=== PATIENT | female | born 1970 | race Caucasian/White ===

== ENCOUNTER 2020-02-27 08:40 | Day surgery (SDC) | payer MEDICAID, OTHER ==
[~2020-02-27] VITALS: Ht 157.5 cm; Wt 99.1 kg
[~2020-02-27 08:40] MED LIST: SODIUM CHLORIDE 0.9% 1,000 ML ONE
[2020-02-27] MEDS ORDERED: SODIUM CHLORIDE 0.9% 1,000 ML IV ONE (09:00)
[2020-02-27] MEDS ORDERED: OMEP20 PO (09:28)
[2020-02-27] MEDS ORDERED: INSLAN SQ (09:28)
[2020-02-27] MEDS ORDERED: INSU100V SQ (09:28)
[2020-02-27] MEDS ORDERED: METH10SO PO (09:28)
[2020-02-27] MEDS ORDERED: FERR-82 PO (09:28)
[2020-02-27] MEDS ORDERED: SPIR25 PO (09:28)
[2020-02-27 10:35] LABS: GLUCOMETER DEV NAME(LOC) SDS.; GLUCOSE,POINT OF CARE 141 MG/DL (70-110)
[2020-02-27] MEDS ORDERED: LIDOCAINE/PF 2% 5 ML VIAL ONE (11:29)
[2020-02-27] MEDS ORDERED: OXYGEN THERAPY IH SCH (20:00)
== END 2020-02-27 13:10 | disposition home or self-care (01) ==
LOC: SURGERY 08:40
PROVIDERS: ATTEND Specialist
DX: I85.00 Esophageal varices without bleeding (principal); K31.89 Other diseases of stomach and duodenum; I10 Essential (primary) hypertension; E66.01 Morbid (severe) obesity due to excess calories; Z68.41 Body mass index [BMI] 40.0-44.9, adult; Z86.19 Personal history of other infectious and parasitic diseases; Z11.59 Encounter for screening for other viral diseases; Z79.899 Other long term (current) drug therapy
CPT/HCPCS: 43235; 82962; 84703; 87635; 93005; J3490; J7030